=== PATIENT | male | born 1965 | race Caucasian/White ===

== ENCOUNTER 2024-11-08 04:44 | Emergency (ER) | payer SELFPAY ==
[2024-11-08 04:46] VITALS: BP 133/107
--- NOTE | 2024-11-08 04:51 | ED.GENMED ---
History of Present Illness
General
Chief Complaint: Alcohol Problem
Source: patient and police
Time Seen by Provider: 11/08/24 04:50
History of Present Illness
History of Present Illness:
Note:
CHIEF COMPLAINT(S)
Evaluation for medical clearance for incarceration.
HISTORY OF PRESENT ILLNESS
The patient is a 60-year-old male who arrived via law enforcement for medical clearance prior to incarceration. He reports a history of heart murmurs and seizures, which he attributes to alcohol withdrawal. The patient expresses significant
frustration and is upset about the situation, indicating strong emotional distress. He admits to experiencing 'lots of diarrhea', which is chronic and denies any current chest pain, shortness of breath, or musculoskeletal pain. He also denies head
injuries or recent trauma but notes a past history of alcohol withdrawal seizures.
CHRONIC MEDICAL CONDITIONS SIGNIFICANTLY AFFECTING CARE
- History of heart murmurs
- Seizures related to alcohol withdrawal
- Depression
SOCIAL DETERMINANTS AFFECTING HEALTH
The patient notes that he did not arrive voluntarily and mentions involvement with law enforcement. He has a history of alcohol use, which he associates with previous seizures.
ALLERGIES
Patient reports an allergy to Tylenol.
SOCIAL HISTORY
The patient reports historical alcohol use and expresses a strong dislike for needles.
REVIEW OF SYSTEMS
- Cardiovascular: No chest pain, no shortness of breath.
- Gastrointestinal: Reports significant diarrhea.
- Neurological: History of seizures; denies current seizures.
- Psychiatric: Expresses emotional distress and frustration regarding current situation.
- General: Denies musculoskeletal pain.
PHYSICAL EXAM
- Cardiovascular: Heart sounds normal.
- Respiratory: Lung sounds normal.
- Neurological: No acute signs of neurological deficit.
- General: No visible trauma noted.
- Nursing notes reviewed and vital signs reviewed.
PLAN
- Perform blood work to check alcohol levels. Patient refused police said it was okay to refuse
- Clear the patient for incarceration.
DIFFERENTIAL DIAGNOSIS
The Differential Diagnosis includes, in no particular order and is not limited to:
- Alcohol intoxication
- Alcohol withdrawal
- Seizure disorder
- Depression
- Gastroenteritis
- Anxiety disorder
- Hyponatremia
- Electrolyte imbalance
- Hepatic encephalopathy
- Acute stress reaction
Disposition:
SUMMARY OF ENCOUNTER
A 59-year-old male presented for evaluation prior to incarceration, accompanied by law enforcement. He admitted to consuming alcohol earlier but reported no complaints at the time of evaluation. The patient was observed to be smiling, in no
distress, and walked with a steady gait. He chose not to have blood work done, which was deemed acceptable by the accompanying officers. His vital signs and physical examination were within normal limits.
PLAN
The patient is cleared for incarceration and no further interventions were deemed necessary.
MEDICAL DECISION MAKING
Number and Complexity of Problems Addressed: The patients presentation was straightforward with no acute or chronic concerns noted during the encounter. The need for blood work was discussed but deferred with consent from the accompanying officers.
Data: Acknowledged the decision to forgo blood work based on patient preference and law enforcement agreement.
Risk: The decision for incarceration clearance took into account the patients stable presentation and the absence of immediate medical concerns. Social determinants of health, specifically the involvement with law enforcement, were considered in the
assessment and disposition of the patient.
Review of Systems
Review of Systems
Allergies reviewed?: Yes
All Other Systems: ROS reviewed and negative except as documented in HPI and ROS
Constitutional: Reports no symptoms
EENT: Reports no symptoms
Respiratory: Reports no symptoms
Cardiac: Reports no symptoms
ABD/GI: Reports no symptoms
: Reports no symptoms
Musculoskeletal: Reports no symptoms
Skin: Reports no symptoms
Neurological: Reports no symptoms
Endocrine: Reports no symptoms
Hematologic/Lymphatic: Reports no symptoms
Psychiatric: Reports no symptoms
Phy Exam
General Physical Exam
General Presentation: well appearing and no apparent distress
General Skin: warm and dry
General Habitus: normal
General Mental: alert
General Hydration: appears well hydrated
ENT Exam
ENT Exam: EOMI, pharynx normal, neck supple and normocephalic
Eye Exam
Eye Exam: PERRL, cornea clear and conjunctiva normal
Cardiovascular Exam
Cardiovascular Exam: regular rate/rhythm, no edema, no murmur and normal peripheral pulses
Pulmonary Exam
Pulmonary Exam: lungs clear, no respiratory distress, no rales, no crackles, no rhonchi, no stridor, no wheezing and no cough
Gastrointestinal Exam
Gastrointestinal Exam: normal bowel sounds, non tender, soft, no organomegaly, no pulsatile mass and non distended
Neurological Exam
Neurological Exam: alert, oriented x3, no motor deficits and speech normal
Musculoskeletal Exam
Musculoskeletal Exam: full ROM and no edema
Skin Exam
Skin Exam: normal color, warm/dry, no rash and no petechia
Psychiatric Exam
Psychiatric Exam: normal mood/affect
Scores
Withdrawal Assessment of Alcohol
Withdrawal Assessment Completed?: Not applicable
Course
Vital Signs
Initial and Last Documented VS:
Initial Vital Signs
Temp Pulse Resp BP Pulse Ox
97.7 F 60 16 133/107 99
11/08/24 04:46 11/08/24 04:46 11/08/24 04:46 11/08/24 04:46 11/08/24 04:46
Last Documented Vital Signs
Temp Pulse Resp BP Pulse Ox
97.7 F 60 16 133/107 99
11/08/24 04:46 11/08/24 04:46 11/08/24 04:46 11/08/24 04:46 11/08/24 04:46
*Pulse Oximetry
Patient hypoxic: no (Pulse ox is 99% on room air)
*Critical Care Note
Total Time (30-74mins, 75-104mins- exclusive of procedures): Not Applicable
ED Attending Note
-
Portions of this chart may have been created with voice recognition software.� Occasional wrong word or��sound alike� substitutions may have occurred due to the inherent limitations of voice recognition software.
Discharge Plan
Departure
Patient Disposition: Custodial
Date of Disposition: 11/08/24
Time of Disposition: 04:54
Condition: Good
Discharge Problem:
Medical clearance for incarceration, Alcohol use
Instructions: Alcohol use - When is drinking a problem?, Alcohol and your health
Referrals:
Ivonne Benavides [Active, Psychiatry]
Activity Restrictions/Additional Instructions:
Patient is medically cleared for incarceration
Thank You for choosing [facility].
It was a pleasure meeting you and taking part in your care. We hope for your continued healing and wellness.
Please read discharge instructions in their entirety. However, they are for general education and may not describe your exact diagnosis at discharge. Information on your ER visit and medical conditions were discussed with you along with appropriate
follow up information...
If indicated, please take your medications as instructed and indicated on discharge paperwork.
Please schedule a follow up appointment as directed. Call to schedule an appointment
Please return to the emergency department with ANY change in, persisting, or worsening of symptoms. If any of your symptoms do not improve, or persist, or become more severe within 6-12 hours, please return to the emergency department for further
care.
Please return to the emergency department if you develop a headache, neck pain/stiffness, fever greater than 100.4F, chest pain, shortness of breath, persistent nausea, vomiting, slurred speech, difficulty walking, numbness/tingling, weakness, signs
of infection or any other symptoms that are worrisome to you.
If you have any questions or concerns please do not hesitate to call the Hospital at
Interventions
Interventions:
*Risk Screen - Suicide Last Done: 11/08/24 04:46
*General Assessment Last Done: 11/08/24 04:46
*Neglect/Abuse Screening Last Done: 11/08/24 04:46
*ED- Fall Risk Assessment Last Done: 11/08/24 04:46
*ED COVID-19 Vaccine History Last Done: 11/08/24 04:46
*Nursing Disposition Last Done: 11/08/24 05:05
ED- Neurological Assessment Last Done: 11/08/24 05:00
ED-Psychological Assessment Last Done: 11/08/24 05:00
Discharge Date and Time
Discharge Date/Time: 11/08/24 05:27
Print Language: FRENCH
== END 2024-11-08 05:27 ==
LOC: EMR 04:44
PROVIDERS: EMERGENCY PHYSICIAN Student in an Organized Health Care Education/Training Program
DX: Z02.89 Encounter for other administrative examinations (principal); F10.90 Alcohol use, unspecified, uncomplicated; Z88.6 Allergy status to analgesic agent
CPT/HCPCS: 99283